=== PATIENT | female | born 1970 | race African-American/Black ===

== ENCOUNTER 2021-09-08 01:48 | Observation (INO) | payer OTHER ==
[2021-09-08 02:11] LABS: #Eosinphils 0.2 thou/uL (0.0-0.7); #Lymphocytes 3.5 thou/uL (1.20-3.40); #Monocytes 0.6 thou/uL (0.11-0.59); #Neutrophils 4.9 thou/uL (1.40-6.50); %Basophils 0.2 % (0.0-1.0); %Eosinophils 1.9 % (0.0-10.0); %Lymphocytes 38.3 % (21.0-51.0); %Monocytes 6.1 % (0.0-10.0); %Neutrophils 53.5 % (42.0-75.0); Hemoglobin 12.4 g/dL (12.0-16.0); Mean Corpuscular HGB CONC 32.7 g/dL (32.0-36.0); Mean Corpuscular Hemoglobin 31.7 pg (27.0-31.0); Mean Corpuscular Volume 96.7 fL (78.0-98.0); Mean Platelet Volume 7.2 fL (7.4-10.4); Platelet Count 217 thou/uL (130-400); Red Blood Cell (RBC) Count 3.91 mill/uL (4.20-5.40); White Blood Cell (WBC) Count 9.1 thou/uL (4.8-10.8)
[2021-09-08 02:30] LABS: ALT (SGPT) 13 U/L (8-55); AST (SGOT) 13 U/L (5-34); Albumin 4.1 g/dL (3.5-5.0); Alkaline Phosphatase 88 U/L (40-110); Anion Gap 14 mmol/L (10-20); BUN (Urea Nitrogen) 17 mg/dL (9.8-20.1); Bilirubin, Total 0.6 mg/dL (0.2-1.2); Calc. Creatinine Clearance 0 mL/min (70-130); Calcium 9.5 mg/dL (7.8-10.44); Carbon Dioxide 24 mmol/L (22-29); Chloride 106 mmol/L (98-107); Estimated GFR 77; Globulin 2.7 g/dL (2.4-3.5); Glucose 145 mg/dL (70-105); Protein, Total 6.8 g/dL (6.0-8.3); Sodium 140 mmol/L (136-145)
[2021-09-08] MEDS ORDERED: Lidocaine 2% PF 5 ML VIAL ONE (06:24)
[2021-09-08] MEDS ORDERED: hydrALAZINE 20 MG/ML VIAL SLOW IVP PRN (09:01)
[2021-09-08] MEDS ORDERED: Ondansetron ODT 4 MG TAB PO PRN (09:01)
[2021-09-08] MEDS ORDERED: Acetaminophen 325 MG TAB PO PRN (09:01)
[2021-09-08] MEDS ORDERED: Ondansetron PF 4 MG/2 ML Vial IVP PRN (09:01)
[2021-09-08] MEDS ORDERED: Acetaminophen 650 MG Suppository PR PRN (09:01)
[2021-09-08] MEDS ORDERED: Aspirin 325 mg Enteric Coated Tablet PO SCH (09:15)
[2021-09-08 09:46] VITALS: BMI 42.5
[2021-09-08] MEDS ORDERED: Lorazepam 2 MG/ML VIAL SLOW IVP SCH (11:15)
[2021-09-08] MEDS ORDERED: Lorazepam 1 MG TAB PO SCH ×2 (12:15→21:00)
[2021-09-08] MEDS ORDERED: Atorvastatin Calcium 40 MG TAB PO SCH (21:00)
[2021-09-09 05:32] LABS: #Eosinphils 0.2 thou/uL (0.0-0.7); #Lymphocytes 2.3 thou/uL (1.20-3.40); #Monocytes 0.4 thou/uL (0.11-0.59); #Neutrophils 3.9 thou/uL (1.40-6.50); %Basophils 0.4 % (0.0-1.0); %Eosinophils 2.6 % (0.0-10.0); %Lymphocytes 33.4 % (21.0-51.0); %Monocytes 6.1 % (0.0-10.0); %Neutrophils 57.7 % (42.0-75.0); Anion Gap 15 mmol/L (10-20); BUN (Urea Nitrogen) 12 mg/dL (9.8-20.1); Calc. Creatinine Clearance 134 mL/min (70-130); Calcium 8.9 mg/dL (7.8-10.44); Carbon Dioxide 23 mmol/L (22-29); Cardiac Risk 3.6 (Less than 4.5); Chloride 105 mmol/L (98-107); Cholesterol 180 mg/dl (< 200 Desired); Estimated GFR 90; Glucose 166 mg/dL (70-105); HDL Cholesterol 50 mg/dL (>60 Neg Risk); Hemoglobin 12.5 g/dL (12.0-16.0); LDL Cholesterol, Calculated 110 mg/dL; Mean Corpuscular HGB CONC 32.1 g/dL (32.0-36.0); Mean Corpuscular Hemoglobin 31.3 pg (27.0-31.0); Mean Corpuscular Volume 97.4 fL (78.0-98.0); Mean Platelet Volume 7.7 fL (7.4-10.4); Platelet Count 215 thou/uL (130-400); Potassium 4.5 mmol/L (3.5-5.1); RBC Distribution Width 12.1 % (11.5-14.5); Red Blood Cell (RBC) Count 3.99 mill/uL (4.20-5.40); Sodium 138 mmol/L (136-145); Triglycerides 100 mg/dL (Less than 150); White Blood Cell (WBC) Count 6.8 thou/uL (4.8-10.8)
[2021-09-09] MEDS ORDERED: Aspirin 81 mg Enteric Coated Tablet PO SCH (09:00)
[2021-09-09] MEDS ORDERED: Lorazepam 1 MG TAB PO PRN (09:52)
[2021-09-09 16:11] VITALS: BP 127/82; TEMP 98.6
== END 2021-09-09 18:10 | disposition home or self-care (01) ==
LOC: ERS 01:48 → 2SW 05:47
PROVIDERS: ADMIT Student in an Organized Health Care Education/Training Program; ATTEND Student in an Organized Health Care Education/Training Program
DX: G45.9 Transient cerebral ischemic attack, unspecified (principal); I10 Essential (primary) hypertension; G51.0 Bell's palsy; E78.5 Hyperlipidemia, unspecified; I08.1 Rheumatic disorders of both mitral and tricuspid valves; I65.23 Occlusion and stenosis of bilateral carotid arteries; Z86.73 Personal history of transient ischemic attack (TIA), and cerebral infarction without residual deficits; Z79.899 Other long term (current) drug therapy; Z20.822 Contact with and (suspected) exposure to COVID-19
CPT/HCPCS: 36415; 70450; 70551; 80048; 80053; 80061; 84484; 85025; 93005; 93306; 93880; G0378; J2001; U0003; U0005

== ENCOUNTER 2021-10-03 08:26 | Outpatient (CLI) | payer OTHER ==
[2021-10-03] MEDS ORDERED: Iopamidol 370 76% 100 ML VIAL ONE (09:52)
== END 2021-10-03 08:27 | disposition home or self-care (01) ==
LOC: CT 08:26
PROVIDERS: ATTEND Thoracic Surgery (Cardiothoracic Vascular Surgery)
DX: I65.21 Occlusion and stenosis of right carotid artery (principal)
CPT/HCPCS: 70498; Q9967